=== PATIENT | female | born 1995 | race Hispanic/Latino ===

== ENCOUNTER 2022-07-19 22:28 | Inpatient (IN) | payer SELFPAY ==
[~2022-07-19] VITALS: Ht 152.4 cm; Wt 78.5 kg
[2022-07-19 23:04] LABS: APPEARANCE,URINE CLEAR (CLEAR); BILIRUBIN,URINE NEGATIVE (NEGATIVE); COLOR,URINE LIGHT-YELLOW (YELLOW); GLUCOSE, URINE (UA) NEGATIVE (NEGATIVE); KETONES,URINE NEGATIVE (NEGATIVE); LEUKOCYTE ESTERASE ,URINE 250 Leu/uL (NEGATIVE); NITRATE,URINE NEGATIVE (NEGATIVE); OCCULT BLOOD,URINE NEGATIVE (NEGATIVE); PH,URINE 6.5 (5.0-8.0); PROTEIN,URINE NEGATIVE (NEGATIVE); UROBILINOGEN,URINE 0.2 mg/dL (0.2-1.0)
[2022-07-19 23:08] LABS: AMPHET/METH SCREEN,URINE NEGATIVE (NEGATIVE); BARBITURATE SCREEN, URINE NEGATIVE (NEGATIVE); BENZODIAZEPINES SCREEN,URINE NEGATIVE (NEGATIVE); COCAINE SCREEN,URINE NEGATIVE (NEGATIVE)
[2022-07-19 23:09] LABS: CANNABINOID SCREEN,URINE NEGATIVE (NEGATIVE); PHENCYCLIDINE SCREEN,URINE NEGATIVE (NEGATIVE)
[2022-07-19 23:13] LABS: MUCUS,URINE RARE LPF (None Seen); SQUAMOUS EPITHELIAL CELL,UR MOD /HPF (0-2)
[2022-07-19 23:58] LABS: HEMATOCRIT 35.7 % (36-48); MEAN CORPUSCULAR HEMOGLOBIN 28.6 pg (27.0-33.0); MEAN CORPUSCULAR HGB CONC 33.6 g/dL (32.0-36.0); MEAN CORPUSCULAR VOLUME 85.2 fL (79-99); RED BLOOD CELL COUNT(AUTO) 4.19 MIL/uL (4.00-5.50); RED CELL DISTRIBUTION WIDTH 13.6 % (11.0-15.5); WHITE BLOOD COUNT (AUTO) 10.4 K/uL (4.8-10.8)
[2022-07-20] MEDS ORDERED: AMPICILLIN 2GM+NS 100ML 100 ML IV SCH
[2022-07-20] MEDS ORDERED: LACTATED RINGERS 1000ML 1,000 ML IV PRN
[2022-07-20 00:48] VITALS: BP 121/77
[2022-07-20] MEDS ORDERED: PREN1TAB80 PO (00:50)
[2022-07-20] MEDS ORDERED: AMPICILLIN 1GM+NS 50ML 50 ML IV SCH (04:00)
[2022-07-20] MEDS ORDERED: OXYTOCIN-LR 20 UNITS/1000 ML 1,000 ML IV SCH ×2 (05:00→14:30)
[2022-07-20 09:11] LABS: RAPID PLASMA REAGIN NONREACTIVE (NONREACTIVE)
[2022-07-20] MEDS ORDERED: NALOXONE HCL 0.4 MG/1 ML ML IV PRN (09:30)
[2022-07-20] MEDS ORDERED: ROPIVACAINE 0.2% 100ML VIAL 100 ML EP SCH (09:30)
[2022-07-20] MEDS ORDERED: EPHEDRINE SULFATE 50 MG/ML AMPULE IVP PRN (09:30)
[2022-07-20] MEDS ORDERED: LACTATED RINGERS 500 ML 500 ML IV PRN (09:30)
[2022-07-20] MEDS ORDERED: FENTANYL CITRATE PF 50 MCG/1 ML 2ML VIAL ONE (09:52)
[2022-07-20] MEDS ORDERED: METHYLERGONOVINE MALEATE 0.2 MG/1 ML ML ONE (13:02)
[2022-07-20] MEDS ORDERED: OXYTOCIN-LR 20 UNITS/1000 ML 1,000 ML IV ONE (13:23)
[2022-07-20] MEDS ORDERED: MEASLES/MUMPS/RUBELLA VACCINE, LIVE 0.5 ML/VIAL SQ PRN (14:30)
[2022-07-20] MEDS ORDERED: ACETAMINOPHEN 325 MG TAB PO PRN (14:30)
[2022-07-20] MEDS ORDERED: DIPH,PERTUSS(ACELL),TET VAC/PF 0.5 ML VIAL IM PRN (14:30)
[2022-07-20] MEDS ORDERED: LANOLIN 30GM OINTMENT TP PRN (14:30)
[2022-07-20] MEDS ORDERED: WITCH HAZEL 1 PAD TP PRN (14:30)
[2022-07-20] MEDS ORDERED: ACETAMINOPHEN WITH CODEINE 1 TAB TAB PO PRN (14:30)
[2022-07-20] MEDS ORDERED: BENZOCAINE/LANOLIN/ALOE VERA 60 ML AEROSOL TP PRN (14:30)
[2022-07-20 15:00] VITALS: BP 109/65
[2022-07-20 16:30] VITALS: BP 119/70
[2022-07-20 19:10] VITALS: BP 119/74
[2022-07-20] MEDS: DOCUSATE SODIUM 100 MG CAP PO SCH (21:59)
[2022-07-20 22:41] VITALS: BP 124/74
[2022-07-21 02:55] VITALS: BP 117/72
[2022-07-21] MEDS: IBUPROFEN 600 MG TABLET PO PRN ×2 (04:57→13:21)
[2022-07-21 06:33] LABS: HEMATOCRIT 30.2 % (36-48); MEAN CORPUSCULAR HGB CONC 33.8 g/dL (32.0-36.0); MEAN CORPUSCULAR VOLUME 85.8 fL (79-99); RED BLOOD CELL COUNT(AUTO) 3.52 MIL/uL (4.00-5.50); RED CELL DISTRIBUTION WIDTH 13.4 % (11.0-15.5); WHITE BLOOD COUNT (AUTO) 12.8 K/uL (4.8-10.8)
[2022-07-21 07:29] VITALS: BP 103/55
[2022-07-21] MEDS: DOCUSATE SODIUM 100 MG CAP PO SCH (08:51)
[2022-07-21 12:14] VITALS: BP 118/70
== END 2022-07-21 15:05 | disposition home or self-care (01) | DRG 807 ==
LOC: EDH 22:28 → OBSVTOIN 22:39 → LDH 22:39 → WSH 07-20 15:15
PROVIDERS: ADMIT Obstetrics & Gynecology; ATTEND Obstetrics & Gynecology
PROC: 10E0XZZ Delivery of Products of Conception, External Approach (ICD-10-PCS; principal; 2022-07-20)
DX: O80 Encounter for full-term uncomplicated delivery (principal); Z37.0 Single live birth; Z3A.40 40 weeks gestation of pregnancy
CPT/HCPCS: 36415; 80305; 81001; 85027; 86592; 86701; 86850; 86900; 86901; 87088; 87340; 87390; A4314; G0378; J2210; J2590; J2795; J3010; J7120